=== PATIENT | female | born 1945 | race Caucasian/White ===

== ENCOUNTER 2024-09-24 18:20 | Emergency (ER) | payer OTHER ==
[~2024-09-24] VITALS: Ht 160 cm; Wt 59.0 kg
[2024-09-24 18:43] VITALS: BP 156/80; O2SAT 97
[2024-09-24] MEDS ORDERED: ROSUVASTATIN CA10 MG (18:44)
== END 2024-09-25 00:11 | disposition left against medical advice (07) ==
LOC: ER 18:23
DX: Z53.21 Procedure and treatment not carried out due to patient leaving prior to being seen by health care provider (principal)